=== PATIENT | female | born 2000 ===

== ENCOUNTER 2025-01-04 21:58 | Emergency (ER) | payer OTHER ==
[~2025-01-04] VITALS: Ht 154.9 cm; Wt 46.8 kg
[2025-01-04 22:07] VITALS: BP 118/74; PULSE 95; RESP 14; TEMP 97.1; O2SAT 99
== END 2025-01-05 01:13 | disposition left against medical advice (07) ==
LOC: ER 22:01
DX: R21 Rash and other nonspecific skin eruption (principal); Z53.21 Procedure and treatment not carried out due to patient leaving prior to being seen by health care provider; Z88.2 Allergy status to sulfonamides; Z88.8 Allergy status to other drugs, medicaments and biological substances
CPT/HCPCS: 99281